=== PATIENT | male | born 1980 | race Caucasian/White ===

== ENCOUNTER 2021-05-09 06:50 | Observation (INO) ==
[2021-05-09] MEDS ORDERED: NITROGLYCERIN SL 0.4 MG TABLET SL PRN (07:48)
[2021-05-09] MEDS ORDERED: ASPIRIN 325 MG TABLET PO STA (07:48)
[2021-05-09 08:02] LABS: Basophils # 0.1 10*3/uL (0.0-0.2); Basophils % 0.4 % (0.0-0.8); Eosinophils # 0.5 10*3/uL (0.0-0.87); Eosinophils % 3.2 % (0.00-10.9); Immature Granulocytes % 0.4 %; Immature Granulocytes Absolute 0.06 #; Lymphocytes # 3.2 10*3/uL (1.4-4.0); Lymphocytes % 20.7 % (21.2-54.2); Mean Corpuscular HGB Conc 32.7 GM/DL (32-36); Mean Platelet Volume 10.3 FL (9.6-12.0); Monocytes % 7.7 % (1.7-12.7); Neutrophils % 67.6 % (38.7-73.9); Platelet Count 300 T/CUMM (130-400); Red Blood Count 5.21 MC/CUMM (3.8-5.5); Red Cell Distribution Width 13.9 % (9.3-17.3); White Blood Count 15.4 T/CUMM (4-12)
[2021-05-09 08:15] LABS: Calcium 9.3 MG/DL (8.5-10.1); Osmolality,Calculated 275.5 MOS/KG (273-304); Potassium 3.8 MMOL/L (3.5-5.1)
[2021-05-09] MEDS ORDERED: GLUCAGON 1 MG VIAL IM PRN (09:37)
[2021-05-09] MEDS ORDERED: NICOTINE 21 MG/24 HR PATCH TRANSDERM PRN (09:37)
[2021-05-09] MEDS ORDERED: DEXTROSE 50% 25 GM/50 ML VIAL IV PRN (09:37)
[2021-05-09] MEDS ORDERED: MORPHINE 2 MG/1 ML SYRINGE IV PRN (09:37)
[2021-05-09] MEDS ORDERED: ACETAMINOPHEN 325 MG TABLET PO PRN (09:37)
[2021-05-09] MEDS ORDERED: ONDANSETRON 4 MG/2 ML VIAL IV PRN (09:37)
[2021-05-09] MEDS ORDERED: PANTOPRAZOLE 40 MG TABLET PO SCH (10:00)
[2021-05-09] MEDS ORDERED: ENOXAPARIN 40 MG/0.4 ML SYRINGE SUBCUT SCH (10:00)
[2021-05-09] MEDS ORDERED: amLODIPine 10 MG TABLET PO SCH (10:05)
[2021-05-09] MEDS ORDERED: LORazepam 1 MG TABLET PO STA (11:37)
[2021-05-09] MEDS ORDERED: hydrALAZINE 20 MG/1 ML VIAL IV STA (12:05)
[2021-05-09] MEDS ORDERED: hydrALAZINE 20 MG/1 ML VIAL ONE (12:06)
[2021-05-09] MEDS ORDERED: LABETALOL 20 MG/4 ML SYRINGE IV ONE (13:56)
[2021-05-09] MEDS ORDERED: LABETALOL 20 MG/4 ML SYRINGE IV STA (13:57)
[2021-05-09 15:56] VITALS: BP 137/96
[2021-05-10] MEDS ORDERED: ASPIRIN EC 325 MG TABLET PO SCH (09:00)
== END 2021-05-09 15:44 | disposition home or self-care (01) ==
LOC: N.EDINP 06:50 → N.ED 06:50 → SUATTDRO 09:37 → N.EDINP 15:43
PROVIDERS: ADMIT Emergency Medicine; ATTEND Emergency Medicine